=== PATIENT | male | born 1950 | race Caucasian/White ===

== ENCOUNTER → 2019-08-18 08:07 | Outpatient (CLI) | payer OTHER, SELFPAY ==
--- NOTE | 2019-08-18 09:42 | NEURO ---
NCS and/or EMG Patient Report Ordering Doctor: Zoran Shrestha DATE OF SERVICE: 08/18/19 Junior Talbot is a 68-year-old male presents for electrodiagnostic testing of the right upper limb. He reports a 4-month history of numbness and tingling in the fourth and fifth digits of the right hand. He also reports intermittent numbness in the medial aspect of the right forearm. Electrodiagnostic findings: Right median motor nerve demonstrates normal distal latency, amplitude and conduction velocity. Prolonged right median sensory latency at the wrist. Prolonged right median palmar latency. Prolonged ulnar sensory latency at the wrist. Right ulnar motor nerve demonstrates normal distal latency and amplitude with reduced conduction velocity. Prolonged right ulnar F wave is noted. On needle EMG, 1+ fibrillations noted in the right flexor carpi ulnaris, right first dorsal interosseous. There is decreased recruitment in the right first dorsal interosseous. Elective diagnostic impression: This is an abnormal study in the right upper limb. 1. Electrodiagnostic findings suggestive of right ulnar neuropathy, consistent with right cubital tunnel syndrome. 2. Electrodiagnostic findings demonstrate right-sided median mononeuropathy. This is consistent with a mild right carpal tunnel syndrome. 3 No electrodiagnostic evidence for cervical radiculopathy.
== END ==
PROVIDERS: Family Provider Orthopaedic Surgery; PCP Orthopaedic Surgery; Referring Provider Orthopaedic Surgery; Visit Provider Orthopaedic Surgery
DX: G56.21 Lesion of ulnar nerve, right upper limb (principal)
CPT/HCPCS: 95886; 95910